=== PATIENT | male | born 1965 | race Caucasian/White ===

== ENCOUNTER 2019-05-23 12:26 | Emergency (ER) | payer OTHER ==
[~2019-05-23] VITALS: Ht 177.8 cm; Wt 158.8 kg
[~2019-05-23 12:26] MED LIST: AMLO5 PO; AMOCLA875 PO; ATEN50 PO; Cleocin HCl150 MG PO; HYDACE5; HYDACE5 PO; IBUP600; Norco 10-325 T1 EACH PO; OXYACE5T PO; PENVK500 PO; PROM25 PO; RXHYDACE PO; RXOXYACE PO; Zofran Odt4 MG SL
[2019-05-23 13:04] LABS: BASOPHILS ABSOLUTE AUTO 0.09 K/mm3 (0.00-0.23); BASOPHILS PERCENT AUTO 1 % (0-2); EOSINOPHILS ABSOLUTE AUTO 0.19 K/mm3 (0.00-0.68); EOSINOPHILS PERCENT AUTO 2 % (0-6); Hematocrit 50.9 % (37.0-53.0); Hemoglobin 16.4 g/dL (13.5-17.5); IMMATURE GRAN ABSOLUTE AUTO 0.04 K/mm3 (0.00-0.10); IMMATURE GRAN PERCENT AUTO 0 % (0-1); LYMPHOCYTES ABSOLUTE AUTO 2.46 K/mm3 (0.84-5.20); LYMPHOCYTES PERCENT AUTO 23 % (21-46); MONOCYTES ABSOLUTE AUTO 0.94 K/mm3 (0.16-1.47); MONOCYTES PERCENT AUTO 9 % (4-13); Mean Corpuscular HGB Conc 32.2 g/dL (31.5-36.5); Mean Corpuscular Volume 90 fL (80-100); Mean Platelet Volume 9.9 fL (9.1-12.4); NEUTROPHILS ABSOLUTE AUTO 6.93 K/mm3 (1.96-9.15); NEUTROPHILS PERCENT AUTO 65 % (41-73); Platelet Count 229 K/mm3 (150-400); RDW Coefficient Variation 13.2 % (11.7-14.2); RDW Standard Deviation 43.8 fL (35.1-46.3); Red Blood Cell Count 5.66 M/mm3 (4.30-5.90); White Blood Cell Count 10.65 K/mm3 (4.00-11.30)
[2019-05-23 13:23] LABS: Alanine Aminotransfer (ALT/SGP 29 U/L (12-78); Albumin, Blood 3.7 g/dL (3.4-5.0); Albumin/Globulin Ratio 0.9 (0.8-1.8); Alk Phos 83 U/L (50-136); Anion Gap 5 mmol/L (6-16); Aspartate Aminotrans (AST/SGOT 23 U/L (12-37); Bilirubin, Total 0.7 mg/dL (0.1-1.0); Blood Urea Nitrogen 15 mg/dL (8-24); Bun/Creatinine Ratio 15.2 (12.0-20.0); CO2, Blood 28 mmol/L (21-32); Calcium, Blood 8.6 mg/dL (8.5-10.1); Chloride, Blood 105 mmol/L (98-108); Creatinine, Blood 0.99 mg/dL (0.60-1.20); Globulin, Blood 4.1 g/dL (2.2-4.0); Glomerular Filtration Rate >60 (60-); Glucose, Blood 103 mg/dL (70-99); Potassium, Blood 3.9 mmol/L (3.5-5.5); Sodium, Blood 138 mmol/L (136-145); Total Protein, Blood 7.8 g/dL (6.4-8.2); Troponin I <0.015 ng/mL (0.000-0.040)
[2019-05-23] MEDS ORDERED: Motion Sickness25 M1 PO (16:19)
== END 2019-05-23 16:50 | disposition home or self-care (01) ==
LOC: ER 12:26
PROVIDERS: Emergency Medicine
DX: R42 Dizziness and giddiness (principal); R51 Headache; I10 Essential (primary) hypertension; Z79.899 Other long term (current) drug therapy; F17.200 Nicotine dependence, unspecified, uncomplicated
CPT/HCPCS: 36415; 70450; 80053; 84484; 85025; 93005; 93010; 99284-25

== ENCOUNTER 2020-12-29 10:28 | Observation (INO) | payer OTHER ==
[~2020-12-29] VITALS: Ht 177.8 cm; Wt 138.0 kg
[~2020-12-29 10:28] MED LIST changes: +AMLO10 PO; -AMLO5 PO; +Motion Sickness25 M1 PO
[2020-12-29] MEDS ORDERED: IBUP200 PO (10:58)
[2020-12-29 11:53] LABS: BASOPHILS ABSOLUTE AUTO 0.08 K/mm3 (0.00-0.23); BASOPHILS PERCENT AUTO 1 % (0-2); EOSINOPHILS ABSOLUTE AUTO 0.09 K/mm3 (0.00-0.68); EOSINOPHILS PERCENT AUTO 1 % (0-6); Hematocrit 53.8 % (37.0-53.0); Hemoglobin 17.4 g/dL (13.5-17.5); IMMATURE GRAN ABSOLUTE AUTO 0.09 K/mm3 (0.00-0.10); IMMATURE GRAN PERCENT AUTO 1 % (0-1); LYMPHOCYTES ABSOLUTE AUTO 1.41 K/mm3 (0.84-5.20); LYMPHOCYTES PERCENT AUTO 11 % (21-46); MONOCYTES ABSOLUTE AUTO 0.64 K/mm3 (0.16-1.47); MONOCYTES PERCENT AUTO 5 % (4-13); Mean Corpuscular HGB 29.7 pg (26.0-34.0); Mean Corpuscular HGB Conc 32.3 g/dL (31.5-36.5); Mean Corpuscular Volume 92 fL (80-100); Mean Platelet Volume 9.9 fL (9.1-12.4); NEUTROPHILS PERCENT AUTO 82 % (41-73); Platelet Count 256 K/mm3 (150-400); RDW Coefficient Variation 13.5 % (11.7-14.2); Red Blood Cell Count 5.86 M/mm3 (4.30-5.90); White Blood Cell Count 12.91 K/mm3 (4.00-11.30)
[2020-12-29 12:02] LABS: Alanine Aminotransfer (ALT/SGP 29 U/L (12-78); Albumin/Globulin Ratio 0.9 (0.8-1.8); Alk Phos 88 U/L (50-136); Anion Gap 3 mmol/L (6-16); Aspartate Aminotrans (AST/SGOT 22 U/L (12-37); Bilirubin, Total 0.7 mg/dL (0.1-1.0); Blood Urea Nitrogen 12 mg/dL (8-24); Bun/Creatinine Ratio 12.9 (12.0-20.0); CO2, Blood 29 mmol/L (21-32); Chloride, Blood 105 mmol/L (98-108); Creatinine, Blood 0.93 mg/dL (0.60-1.20); Globulin, Blood 4.4 g/dL (2.2-4.0); Glomerular Filtration Rate >60 (60-); Glucose, Blood 138 mg/dL (70-99); Potassium, Blood 3.8 mmol/L (3.5-5.5); Sodium, Blood 137 mmol/L (136-145); Total Protein, Blood 8.4 g/dL (6.4-8.2)
[2020-12-30 05:33] LABS: BASOPHILS ABSOLUTE AUTO 0.02 K/mm3 (0.00-0.23); BASOPHILS PERCENT AUTO 0 % (0-2); EOSINOPHILS PERCENT AUTO 0 % (0-6); Hematocrit 48.3 % (37.0-53.0); Hemoglobin 15.9 g/dL (13.5-17.5); IMMATURE GRAN ABSOLUTE AUTO 0.04 K/mm3 (0.00-0.10); IMMATURE GRAN PERCENT AUTO 0 % (0-1); LYMPHOCYTES ABSOLUTE AUTO 0.83 K/mm3 (0.84-5.20); LYMPHOCYTES PERCENT AUTO 8 % (21-46); MONOCYTES ABSOLUTE AUTO 0.08 K/mm3 (0.16-1.47); MONOCYTES PERCENT AUTO 1 % (4-13); Mean Corpuscular HGB Conc 32.9 g/dL (31.5-36.5); Mean Corpuscular Volume 91 fL (80-100); Mean Platelet Volume 10.3 fL (9.1-12.4); NEUTROPHILS ABSOLUTE AUTO 10.07 K/mm3 (1.96-9.15); NEUTROPHILS PERCENT AUTO 91 % (41-73); Platelet Count 247 K/mm3 (150-400); RDW Coefficient Variation 13.6 % (11.7-14.2); RDW Standard Deviation 45.8 fL (35.1-46.3); White Blood Cell Count 11.04 K/mm3 (4.00-11.30)
[2020-12-30 05:57] LABS: Anion Gap 5 mmol/L (6-16); Blood Urea Nitrogen 12 mg/dL (8-24); Bun/Creatinine Ratio 13.9 (12.0-20.0); CO2, Blood 25 mmol/L (21-32); Calcium, Blood 8.6 mg/dL (8.5-10.1); Chloride, Blood 107 mmol/L (98-108); Creatinine, Blood 0.86 mg/dL (0.60-1.20); Glomerular Filtration Rate >60 (60-); Glucose, Blood 143 mg/dL (70-99); Potassium, Blood 3.9 mmol/L (3.5-5.5); Sodium, Blood 137 mmol/L (136-145)
--- NOTE | 2020-12-30 17:00 | NUR ---
PT AAOX4. INTERMITTENT DIZZINESS THROUGHOUT SHIFT. HIGH BPS NOTED. PT SYMPTOMATIC WITH HEADACHE. PT REPORTS HIGH ANXIETY. DR. DOE NOTIFIED PRN HYDROXYZINE AND PRN HYDRALAZINE ADDED TO EMAR. HYDROXYZINE GIVEN WITH GOOD RESULTS. PT EDUCATED ON HIGH BP MEDICATIONS AND RISK OF STROKE. EDUCATED ON LOGGING DAILY BPS AND BEING COMPLIANT WITH MD MEDICATIONS ORDERS AND FOLLOW UP APPT. HE VERBALIZED UNDERSTANDING. RR EVEN AND UNLABORED ON RA. APPETITE GOOD. IV PATENT AND SALINE LOCKED. HE HAS NO QUESTIONS AT THIS TIME. WILL CONTINUE TO MONITOR UNTIL REPORT GIVEN TO NOC RN
--- NOTE | 2020-12-31 05:39 | NUR ---
SHIFT SUMMARY NO ACUTE CHANGES THIS SHIFT, NO C/O ANY KIND, SLEPT T/O THE NIGHT, CALL LIGHT IN REACH, WILL CONT TO MONITOR UNTIL REPORT GIVEN TO DAY RN.
[2020-12-31] MEDS ORDERED: Aspirin EC81 MG PO (11:23)
[2020-12-31] MEDS ORDERED: ATOR40TA PO (11:23)
[2020-12-31] MEDS ORDERED: LISI20 PO (11:23)
[2020-12-31] MEDS ORDERED: HYDCHL25 PO (11:31)
[2020-12-31] MEDS ORDERED: AMLO10 PO (11:35)
--- NOTE | 2020-12-31 12:41 | NUR ---
DISCHARGE SUMMARY PT DISCHARGE THIS SHIFT AT APPROXIMATE 1230. NO ACUTE CHANGES NOTED TO PT, DENIES ANY PAIN OR DISCOMFORT, PT A&OX4, ABLE TO MAKE NEED KNOWN, PLEASANT AND COOPERATIVE TO CARE, PT DAUGHTER PRESENT DURING DISCHARGE PROCESS. PT VERBALIZED UNDERSTANDING OF DISCHARGE ORDERS. NO ISSUES OR COMPLAINTS PRIOR TO DISCHARGE. TELE MONITOR DISCONTINUED PRIOR TO DISCHARGE.
--- NOTE | 2020-12-31 13:50 | NUR ---
ADMIT: 12/29/2020 DISCHARGE: 12/31/20 DX: Acute Vertigo with N/V CC: Morelia Thompson CALL: pt at home (1 wk, ARYA)RESIDENCE: [address] [place] [address], Domenic [id number]: Stephania Kurtz, Spouse / Partner, JC: Vertigo, Nelson's palsy, HTNDME: Only acute injury DME in chartCCM: No previous CCM referrals HOME HEALTH: NoneSUMMARY:12/31/20- Per chart review with Dr. Benjamin, pt had stroke and orders have been placed for referral to neurology. Pt will d/c home today.-shabnam
== END 2020-12-31 12:31 | disposition home or self-care (01) ==
LOC: ER 10:28 → MEDS 10:29 → ENPENDDIS 12-31 10:26 → MEDS 12-31 12:31
PROVIDERS: Emergency Medicine; Nurse Practitioner Acute Care; ADMIT Family Medicine
DX: R42 Dizziness and giddiness (principal); R11.2 Nausea with vomiting, unspecified; I10 Essential (primary) hypertension; F17.210 Nicotine dependence, cigarettes, uncomplicated; F41.9 Anxiety disorder, unspecified; E66.9 Obesity, unspecified; Z68.41 Body mass index [BMI] 40.0-44.9, adult; Z86.73 Personal history of transient ischemic attack (TIA), and cerebral infarction without residual deficits
CPT/HCPCS: 36415; 70450; 70496; 70498; 80048; 80053; 83036; 85025; 93005; 93010; 96372; 96374-59; 96375-59; 96376; 97116; 97161; 97530; 99285-25; A9270; G0378; J1100; J1200; J1650; J2405; J2765; J3360; J3480; J7030; Q9967

== ENCOUNTER 2021-05-17 12:30 | Inpatient (IN) | payer OTHER ==
[~2021-05-17] VITALS: Ht 175.3 cm; Wt 137.9 kg
[~2021-05-17 12:30] MED LIST changes: +ATOR40TA PO; +Aspirin EC81 MG PO; +HYDCHL25 PO; +IBUP200 PO; +LISI20 PO
[2021-05-17 13:04] LABS: BASOPHILS ABSOLUTE AUTO 0.09 K/mm3 (0.00-0.23); BASOPHILS PERCENT AUTO 1 % (0-2); EOSINOPHILS ABSOLUTE AUTO 0.29 K/mm3 (0.00-0.68); EOSINOPHILS PERCENT AUTO 3 % (0-6); Hematocrit 49.5 % (37.0-53.0); Hemoglobin 16.3 g/dL (13.5-17.5); IMMATURE GRAN ABSOLUTE AUTO 0.03 K/mm3 (0.00-0.10); IMMATURE GRAN PERCENT AUTO 0 % (0-1); LYMPHOCYTES ABSOLUTE AUTO 2.76 K/mm3 (0.84-5.20); LYMPHOCYTES PERCENT AUTO 31 % (21-46); MONOCYTES ABSOLUTE AUTO 0.87 K/mm3 (0.16-1.47); MONOCYTES PERCENT AUTO 10 % (4-13); Mean Corpuscular HGB 30.2 pg (26.0-34.0); Mean Corpuscular HGB Conc 32.9 g/dL (31.5-36.5); Mean Corpuscular Volume 92 fL (80-100); Mean Platelet Volume 9.7 fL (9.1-12.4); NEUTROPHILS ABSOLUTE AUTO 4.94 K/mm3 (1.96-9.15); NEUTROPHILS PERCENT AUTO 55 % (41-73); Platelet Count 231 K/mm3 (150-400); RDW Coefficient Variation 13.4 % (11.7-14.2); White Blood Cell Count 8.98 K/mm3 (4.00-11.30)
[2021-05-17 13:22] LABS: Alanine Aminotransfer (ALT/SGP 29 U/L (12-78); Albumin, Blood 3.4 g/dL (3.4-5.0); Albumin/Globulin Ratio 0.8 (0.8-1.8); Alk Phos 76 U/L (50-136); Anion Gap 2 mmol/L (6-16); Aspartate Aminotrans (AST/SGOT 33 U/L (12-37); Bilirubin, Total 0.6 mg/dL (0.1-1.0); Blood Urea Nitrogen 13 mg/dL (8-24); Bun/Creatinine Ratio 11.8 (12.0-20.0); CO2, Blood 32 mmol/L (21-32); Chloride, Blood 107 mmol/L (98-108); Glomerular Filtration Rate >60 (60-); Glucose, Blood 96 mg/dL (70-99); Potassium, Blood 4.6 mmol/L (3.5-5.5); Sodium, Blood 141 mmol/L (136-145); Total Protein, Blood 7.4 g/dL (6.4-8.2); Troponin I <0.015 ng/mL (0.000-0.040)
[2021-05-17 13:45] LABS: International Normalized Ratio 0.95; Prothrombin Time Results 10.3 Sec (9.7-11.5)
[2021-05-17 16:16] LABS: SARS-Cov-2 (COVID-19) PCR, MMC NEGATIVE (NEGATIVE)
--- NOTE | 2021-05-17 16:44 | NUR ---
PATIENT ADMITTED FROM ED APPROX 1610 ARRIVED TO UNIT IN WHEELCHAIR PATIENTN A&OX4 ABLE TO VERBALIZE NEEDS ORIENTED TO UNIT/ROOM UP AD ALBERTO WITH STEADY GAIT NO PAIN NO DISTRESS NOTED 1630 PATIENT TRANSPORTED OFF OF UNIT VIA WHEELCHAIR FOR MRI PER ORDERS REMAINS OFF OF UNIT AT THIS TIME
--- NOTE | 2021-05-17 18:37 | NUR ---
THIS PM PATIENT C/O CHEST PAIN DULL ACHING PAIN DR GARCIA NOTIFIED WITH NO'S EKG TROPONIN LEVEL AND MORPHINE 2MG @ APPROX 1815 ORDERS CARRIED OUT GIVEN PATIENT A&OX4 VERBALIZES RELIEF OF CHEST PAIN DESCRIBES INTERMITTENT NAGGING PAIN SITTING UP IN BED RESP EASY/EVEN/UNLABORED NO S/S DISTRESS NOTED
[2021-05-18 04:38] LABS: Hematocrit 47.6 % (37.0-53.0); Mean Corpuscular HGB 30.5 pg (26.0-34.0); Mean Corpuscular HGB Conc 33.6 g/dL (31.5-36.5); Mean Corpuscular Volume 91 fL (80-100); Mean Platelet Volume 9.5 fL (9.1-12.4); Platelet Count 228 K/mm3 (150-400); RDW Coefficient Variation 13.3 % (11.7-14.2); RDW Standard Deviation 44.6 fL (35.1-46.3); Red Blood Cell Count 5.24 M/mm3 (4.30-5.90); White Blood Cell Count 8.53 K/mm3 (4.00-11.30)
[2021-05-18 05:00] LABS: Alanine Aminotransfer (ALT/SGP 25 U/L (12-78); Albumin, Blood 3.3 g/dL (3.4-5.0); Albumin/Globulin Ratio 0.9 (0.8-1.8); Alk Phos 68 U/L (50-136); Anion Gap 6 mmol/L (6-16); Aspartate Aminotrans (AST/SGOT 19 U/L (12-37); Bilirubin, Total 0.7 mg/dL (0.1-1.0); Blood Urea Nitrogen 12 mg/dL (8-24); Bun/Creatinine Ratio 12.1 (12.0-20.0); CHOL/HDL RATIO 3.5; CO2, Blood 25 mmol/L (21-32); Calcium, Blood 8.5 mg/dL (8.5-10.1); Chloride, Blood 109 mmol/L (98-108); Cholesterol 155 mg/dL (50-200); Creatinine, Blood 0.99 mg/dL (0.60-1.20); Globulin, Blood 3.8 g/dL (2.2-4.0); Glomerular Filtration Rate >60 (60-); Glucose, Blood 97 mg/dL (70-99); HDL Cholesterol 44 mg/dL (>39); LDL/HDL RATIO 2.1; Low Density Lipoprotein Chol 94 mg/dL (0-110); Magnesium, Blood 2.6 mg/dL (1.6-2.4); Potassium, Blood 3.8 mmol/L (3.5-5.5); Sodium, Blood 140 mmol/L (136-145); Total Protein, Blood 7.1 g/dL (6.4-8.2); Triglycerides 87 mg/dL (30-160); Very Low Density Lipoprot Chol 17 mg/dL (6-32)
--- NOTE | 2021-05-18 06:18 | NUR ---
end of shift report. Pt anxious thorughout the night. Crying and agitated because he "just wants to go home. He does not know what he is doing here" Pt refusing to have IV fluids a this time. Educated pt on importance of having IV fluids, pt still refuses. A&Ox4. notified. Fluids on hold for now. Pt reports speech is "almost back to normal" and some nubness still in the L lower arm. 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 pt resting at this time. call light within reach.
--- NOTE | 2021-05-18 14:22 | NUR ---
echocardiogram complete
--- NOTE | 2021-05-18 15:43 | NUR ---
PATIENT WITH INCREASED/ELEVATED BP 208/127 ASYMPTOMATIC APRESOLINE GIVEN PER PRN ORDERS PATIENT REMAIN A&OX4 SITTING UP IN BED RESP EVEN/UNLABORED NO S/S DISTRESS NOTED WILL CONT TO MONITOR
--- NOTE | 2021-05-18 16:35 | NUR ---
PATIENT BP HAS DECREASED TO 175/101 REMAINS ASYMPTOMATIC NO S/S DISTRESS NOTED WILL CONT TO MONITOR
--- NOTE | 2021-05-19 05:58 | NUR ---
C IRON WORKER SUMMARY ADMITTED FOR CVA. PT IS FULL CODE. PLAN TO DISCHARGE HOME TODAY. PT'S SLURRED SPEECH HAS GREATLY IMPROVED. PT HAS BEEN INDEPENDENT IN THE ROOM ALL SHIFT. PT CONCERNED ABOUT CONTINUED HIGH BLOOD PRESSURE - ASYMPTOMATIC. NO OTHER CONCERNS THIS SHIFT.
== END 2021-05-19 17:46 | disposition home or self-care (01) | DRG 65 ==
LOC: ER 12:30 → MEDS 14:42
PROVIDERS: Emergency Medicine; ADMIT Family Medicine
DX: I63.9 Cerebral infarction, unspecified (principal); Z68.41 Body mass index [BMI] 40.0-44.9, adult; I10 Essential (primary) hypertension; R29.703 NIHSS score 3; J44.9 Chronic obstructive pulmonary disease, unspecified; E78.5 Hyperlipidemia, unspecified; Z79.899 Other long term (current) drug therapy; R47.81 Slurred speech; E66.9 Obesity, unspecified; R29.704 NIHSS score 4; F17.200 Nicotine dependence, unspecified, uncomplicated
CPT/HCPCS: 36415; 70450; 70551; 80053; 80061; 83036; 83735; 84100; 84484; 85025; 85027; 85610; 85730; 92610; 93005; 93010; 93306; 93880; 94640; 94762; 96374; 97112; 97162; 99285-25; A9270; J0360; J0456; J1650; J2270; J7030; J7050; U0004

== ENCOUNTER 2024-06-03 06:27 | Day surgery (SDC) | payer MEDICARE, OTHER ==
[2024-06-03] VITALS (16 sets, daily range): BP systolic 109–135; BP diastolic 73–105
[~2024-06-03] VITALS: Ht 175.3 cm; Wt 158.0 kg
[~2024-06-03 06:27] MED LIST changes: +ADALAT CC60 M1 PO; +Crestor40 MG PO; +Cymbalta20 MG PO; +ELIQUIS5 M2 PO; +METO25ER PO; +ONDA4
[2024-06-03] MEDS ORDERED: Lidocaine HCl 1% 20 ML MDV ONE (06:35)
[2024-06-03] MEDS ORDERED: NS 1,000 ML IV ONE (06:56)
--- NOTE | 2024-06-03 07:45 | NUR ---
PT AWAKE AND CONVERSING APPROPRIATELY, DENIES PAIN POST PROCEDURE, VSS. PT REMAINS IN AFLUTTER VS MAT.
--- NOTE | 2024-06-03 08:17 | NUR ---
PT DRESSED SELF WITHOUT ISSUE, IV REMOVED-CANNULA INTACT. PT RECEIVED DISCHARGE INSTRUCTIONS, MED LIST AND AFTER CARE INSTRUCTIONS; VERBALIZED GOOD UNDERSTANDING. PT LEFT FACILITY VIA W/C, CONDITION STABLE.
[2024-06-03] MEDS ORDERED: Propofol 10mg/ml 20 ml Vial (Procedural) IV ONE (17:12)
== END 2024-06-03 15:29 | disposition home or self-care (01) ==
LOC: MHTC 06:27
DX: I48.92 Unspecified atrial flutter (principal); I48.91 Unspecified atrial fibrillation; I10 Essential (primary) hypertension; G47.33 Obstructive sleep apnea (adult) (pediatric); E66.01 Morbid (severe) obesity due to excess calories; Z68.43 Body mass index [BMI] 50.0-59.9, adult; Z87.891 Personal history of nicotine dependence; Z79.82 Long term (current) use of aspirin
CPT/HCPCS: 92960; 93005; 93010; J2704; J7030

== ENCOUNTER 2024-06-10 07:57 | Day surgery (SDC) | payer MEDICARE, OTHER ==
[~2024-06-10] VITALS: Ht 175.3 cm; Wt 157.2 kg
[~2024-06-10 07:57] MED LIST changes: +NS 500 ML IV SCH
[2024-06-10 08:24] VITALS: BP 143/83
--- NOTE | 2024-06-10 08:44 | NUR ---
PT TO SDS VIA WC. PT ABLE TO STAND FOR HEIGHT/WEIGHT. History, Chart, Medications and Allergies reviewed before start of procedure. Patient confirms NPO status and agrees with scheduled surgery. Pre-Op teaching done. Pt verbalizes understanding. Patient States Post-Procedure ride home has been arranged.
[2024-06-10] MEDS ORDERED: Ipratropium/Albuterol SulF 2.5-0.5MG/3 ML Amp INH ONE ×2 (08:45→09:50)
[2024-06-10] MEDS ORDERED: propofoL 100 ML IV ONE (09:01)
--- NOTE | 2024-06-10 09:01 | NUR ---
PT DIFFICULT IV START. 20G IV STARTED BY ANESTHESIA MO.
[2024-06-10] MEDS ORDERED: Labetalol HCL 5 MG/ML 20MLVIAL ONE (09:12)
--- NOTE | 2024-06-10 09:17 | NUR ---
06/10/24 0917 Ade Oscar History, Chart, Medications and Allergies reviewed before start of procedure. MO PROVIDING ANESTHESIA SEE RECORDS
[2024-06-10 09:48] VITALS: BP 113/74
[2024-06-10 10:06] VITALS: BP 117/89
--- NOTE | 2024-06-10 10:23 | NUR ---
Discharge instructions reviewed with patient. Patient verbalizes understanding. Copy given to patient to take home. Pt to resume eliquis tomorrow 06/11. Patient States Post-Procedure ride home has been arranged. Discharged via wheelchair to private car for ride home.
== END 2024-06-10 10:25 | disposition home or self-care (01) ==
LOC: ORSCMMR 07:57 → ORD 09:30 → ORSCMMR 09:30
PROVIDERS: Internal Medicine Gastroenterology
PROC: 0DBN8ZX Excision of Sigmoid Colon, Via Natural or Artificial Opening Endoscopic, Diagnostic (ICD-10-PCS; principal; 2024-06-10 09:30)
PROC: 0DBE8ZX Excision of Large Intestine, Via Natural or Artificial Opening Endoscopic, Diagnostic (ICD-10-PCS; principal; 2024-06-10 09:30)
PROC: 0DBL8ZX Excision of Transverse Colon, Via Natural or Artificial Opening Endoscopic, Diagnostic (ICD-10-PCS; principal; 2024-06-10 09:30)
PROC: 0DJ08ZZ Inspection of Upper Intestinal Tract, Via Natural or Artificial Opening Endoscopic (ICD-10-PCS; principal; 2024-06-10 09:30)
DX: Z12.11 Encounter for screening for malignant neoplasm of colon (principal); Z80.0 Family history of malignant neoplasm of digestive organs; K21.9 Gastro-esophageal reflux disease without esophagitis; R11.0 Nausea; D12.3 Benign neoplasm of transverse colon; K63.5 Polyp of colon; I10 Essential (primary) hypertension; I48.91 Unspecified atrial fibrillation; Z79.01 Long term (current) use of anticoagulants; Z86.73 Personal history of transient ischemic attack (TIA), and cerebral infarction without residual deficits; G47.33 Obstructive sleep apnea (adult) (pediatric); E66.01 Morbid (severe) obesity due to excess calories; Z68.43 Body mass index [BMI] 50.0-59.9, adult; Z79.899 Other long term (current) drug therapy
CPT/HCPCS: 88305; J2704; J7040